=== PATIENT | male | born 1950 | race Caucasian/White ===

== ENCOUNTER 2019-01-14 19:36 | Emergency (ER) | payer MEDICARE, BC ==
--- NOTE | 2019-01-14 20:16 | EDM.PDOC ---
ED HPI GENERAL MEDICAL PROBLEM - General Chief Complaint: Cardiovascular Problem Stated Complaint: irregular heart beat Time Seen by Provider: 01/14/19 19:54 Source of Information: Reports: Patient History Limitations: Reports: No Limitations - History of Present Illness INITIAL COMMENTS - FREE TEXT/NARRATIVE: 68-year-old male with intermittent irregular heartbeat for the past 3 months. He reports that over the past week, however, he has had 3 episodes of irregular heartbeat. He does not feel that his heart is beating fast but just feels that it is beating irregularly. He denies any chest pain. He does have some neck pain chronic and unchanged. He is having no shortness of breath. He has had cold symptoms for the past week and he can Sudafed intermittently for with some relief he monitors his blood pressure daily and he noted from the blood pressure monitor that his heart rate was irregular on Monday of last week, of last week and today. It does seem that this seems to come on after activity. He has no leg swelling. He's had no hemoptysis. He has had a mild cough associated with this cold for the past week. There has been no nausea or vomiting. He has been eating and drinking normally. There are no other associated signs or symptoms. There are no other modifying factors. 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 [Unable to Verify Home Med List] 01/14/19 [History] Past Medical History HEENT History: Reports: Impaired Vision Cardiovascular History: Reports: High Cholesterol, Hypertension Gastrointestinal History: Reports: GERD Musculoskeletal History: Reports: Other (See Below) Other Musculoskeletal History: Collapsed T7 in vertebrae, broken collarbone and 6 ribs Psychiatric History: Reports: ADD, Other (See Below) Other Psychiatric History: Language impairement Endocrine/Metabolic History: Reports: Obesity/BMI 30+ Dermatologic History: Reports: Psoriasis - Past Surgical History HEENT Surgical History: Reports: Tonsillectomy, Other (See Below) Other HEENT Surgeries/Procedures: Torn retina repaired GI Surgical History: Reports: Cholecystectomy, Colonoscopy, Polypectomy Other GI Surgeries/Procedures: Umbilical hernia repair Male Surgical History: Reports: Vasectomy Social & Family History - Tobacco Use Smoking Status *Q: Never Smoker Second Hand Smoke Exposure: Yes - Caffeine Use Caffeine Use: Reports: Coffee, Energy Drinks, Soda - Recreational Drug Use Recreational Drug Use: No - Living Situation & Occupation 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 Denies: Shortness of Breath Cardiovascular: Reports: Palpitations. Denies: Chest Pain Endocrine: Reports: No Symptoms GI/Abdominal: Reports: No Symptoms : Reports: No Symptoms Musculoskeletal: Reports: No Symptoms (No leg swelling L and no body aches) Skin: Reports: No Symptoms Neurological: Reports: No Symptoms Hematologic/Lymphatic: Reports: No Symptoms Immunologic: Reports: No Symptoms ED EXAM, GENERAL - Physical Exam Exam: See Below Exam Limited By: No Limitations General Appearance: Alert, WD/WN, No Apparent Distress Eye Exam: Bilateral Eye: EOMI, Normal Inspection, PERRL Ears: Normal External Exam, Hearing Grossly Normal Ear Exam: Bilateral Ear: Auricle Normal Nose: Nasal Drainage Throat/Mouth: Normal Inspection, Normal Lips, Normal Voice, No Airway Compromise Head: Atraumatic, Normocephalic Neck: Normal Inspection, Supple, Non-Tender, Full Range of Motion Respiratory/Chest: No Respiratory Distress, Lungs Clear, Normal Breath Sounds, No Accessory Muscle Use, Chest Non-Tender Cardiovascular: Normal Peripheral Pulses, No Edema, No Murmur, Irregularly Irregular Peripheral Pulses: 2+: Radial (L), Radial (R) GI/Abdominal: Normal Bowel Sounds, Soft, Non-Tender, No Organomegaly, No Distention, Pelvis Stable Back Exam: Normal Inspection, Full Range of Motion Extremities: Normal Inspection, Normal Range of Motion, Non-Tender, No Pedal Edema, Normal Capillary Refill Neurological: Alert, Oriented, CN II-XII Intact, Normal Cognition, Normal Gait, Normal Reflexes, No Motor/Sensory Deficits Psychiatric: Normal Affect, Normal Mood Skin Exam: Warm, Dry, Intact, Normal Color, No Rash Lymphatic: No Adenopathy EKG INTERPRETATION Rhythm: A-Fib Rate (Beats/Min): 62 Avery: Normal QT: Normal EKG Interpretation Comments: Patient has atrial fibrillation with controlled ventricular response. Course - Vital Signs Last Recorded V/S: Last Vital Signs Temp 36.8 C 01/14/19 20:42 Pulse 71 01/14/19 20:42 Resp 18 01/14/19 20:42 BP 143/79 H 01/14/19 20:42 Pulse Ox 98 01/14/19 20:42 - Orders/Labs/Meds Orders: Active Orders 24 hr Category Date Time Status Cardiac Monitoring [RC] .As Directed Care 01/14/19 20:07 Active EKG Documentation Completion [RC] ASDIRECTED Care 01/14/19 20:09 Active Chest 2V [CR] Stat Exams 01/14/19 20:07 Taken EKG 12 Lead [EK] Routine Ther 01/14/19 20:07 Ordered Labs: Laboratory Tests 01/14/19 01/14/19 01/14/19 Range/Units 20:20 20:20 20:20 WBC 5.4 (4.5-12.0) X10-3/uL RBC 4.76 (4.30-5.75) x10(6)uL Hgb 15.4 (13.5-17.8) g/dL Hct 44.7 (30.0-51.3) % MCV 94.0 (80-96) fL MCH 32.4 (27.7-33.6) pg MCHC 34.5 (32.2-35.4) g/dL RDW 12.7 (11.5-15.5) % Plt Count 206 (125-369) X10(3)uL MPV 8.6 (7.4-10.4) fL Neut % (Auto) 48.2 (46-82) % Lymph % (Auto) 32.3 (13-37) % [place] % (Auto) 10.0 (4-12) % Eos % (Auto) 8 H (1.0-5.0) % Baso % (Auto) 1 (0-2) % Neut # (Auto) 2.6 (1.6-8.3) # Lymph # (Auto) 1.7 (0.6-5.0) # [place] # (Auto) 0.5 (0.0-1.3) # Eos # (Auto) 0.5 (0.0-0.8) # Baso # (Auto) 0.1 (0.0-0.2) # PT 10.4 (8.7-11.1) INR 1.07 (0.89-1.13) APTT 27.6 (24.4-33.2) SECONDS D-Dimer, Quantitative 0.32 (0.0-0.59) mg/LFEU Sodium 139 (135-145) mmol/L Potassium 4.0 (3.5-5.3) mmol/L Chloride 105 (100-110) mmol/L Carbon Dioxide 23 (21-32) mmol/L BUN 28 H (7-18) mg/dL Creatinine 1.7 H (0.70-1.30) mg/dL Est Cr Clr Drug Dosing 42.94 mL/min Estimated GFR (MDRD) 40 L (>60) BUN/Creatinine Ratio 16.5 (9-20) Glucose 122 H (80-116) mg/dL Calcium 8.5 L (8.6-10.2) mg/dL Magnesium 2.1 (1.8-2.5) mg/dL Total Bilirubin 0.4 (0.1-1.3) mg/dL AST 26 H (5-25) IU/L ALT 37 H (12-36) U/L Alkaline Phosphatase 152 H (56-112) IU/L Troponin I (<0.017-0.056) ng/mL Total Protein 7.1 (6.0-8.0) g/dL Albumin 3.5 (3.2-4.6) g/dL Globulin 3.6 g/dL Albumin/Globulin Ratio 1.0 TSH, Ultra Sensitive (0.36-3.74) IU/mL 01/14/19 01/14/19 Range/Units 20:20 20:20 WBC (4.5-12.0) X10-3/uL RBC (4.30-5.75) x10(6)uL Hgb (13.5-17.8) g/dL Hct (30.0-51.3) % MCV (80-96) fL MCH (27.7-33.6) pg MCHC (32.2-35.4) g/dL RDW (11.5-15.5) % Plt Count (125-369) X10(3)uL MPV (7.4-10.4) fL Neut % (Auto) (46-82) % Lymph % (Auto) (13-37) % [place] % (Auto) (4-12) % Eos % (Auto) (1.0-5.0) % Baso % (Auto) (0-2) % Neut # (Auto) (1.6-8.3) # Lymph # (Auto) (0.6-5.0) # [place] # (Auto) (0.0-1.3) # Eos # (Auto) (0.0-0.8) # Baso # (Auto) (0.0-0.2) # PT (8.7-11.1) INR (0.89-1.13) APTT (24.4-33.2) SECONDS D-Dimer, Quantitative (0.0-0.59) mg/LFEU Sodium (135-145) mmol/L Potassium (3.5-5.3) mmol/L Chloride (100-110) mmol/L Carbon Dioxide (21-32) mmol/L BUN (7-18) mg/dL Creatinine (0.70-1.30) mg/dL Est Cr Clr Drug Dosing mL/min Estimated GFR (MDRD) (>60) BUN/Creatinine Ratio (9-20) Glucose (80-116) mg/dL Calcium (8.6-10.2) mg/dL Magnesium (1.8-2.5) mg/dL Total Bilirubin (0.1-1.3) mg/dL AST (5-25) IU/L ALT (12-36) U/L Alkaline Phosphatase (56-112) IU/L Troponin I < 0.017 L (<0.017-0.056) ng/mL Total Protein (6.0-8.0) g/dL Albumin (3.2-4.6) g/dL Globulin g/dL Albumin/Globulin Ratio TSH, Ultra Sensitive 2.62 (0.36-3.74) IU/mL - Re-Assessments/Exams Free Text/Narrative Re-Assessment/Exam: 01/14/19 21:28: Patient remains asymptomatic. His pulse rate is in the 60-70 range. His blood pressures have remained stable. He has atrial fibrillation with controlled rate. He has chronic kidney disease but he has had a history of this. His other blood tests were reassuringly normal. His chest x-ray was normal as well. He will need to follow-up with his primary doctor for recheck and to discuss further treatment and evaluation of his atrial fibrillation on an outpatient basis. He was advised, however, to come back to the emergency department for difficulty breathing, fast heart rate, chest pain or any other concerning sign or symptom. 01/14/19 21:30 Departure - Departure Time of Disposition: 21:30 Disposition: Home, Self-Care 01 Condition: Good Clinical Impression: Atrial fibrillation with controlled ventricular rate Chronic kidney disease Qualifiers: Chronic kidney disease stage: stage 3 (moderate) Qualified Code(s): N18.3 - Chronic kidney disease, stage 3 (moderate) Hypertension Qualifiers: Hypertension type: essential hypertension Qualified Code(s): I10 - Essential ( primary) hypertension Instructions: Atrial Fibrillation, [id number], Hypertension Referrals: Les Jade MD [Primary Care Provider] - Forms: ED Department Discharge Additional Instructions: You have a heart rhythm called atrial fibrillation. Your heart rate, however, is controlled/normal. You do have chronic kidney disease as you knew, but the rest of your blood tests were reassuringly normal. Your chest x-ray showed no acute problem. You should follow-up with your primary doctor this week or next. He should drink plenty of fluids. You should avoid any strenuous activity until cleared to do so by your doctor. Back to the emergency department for breathing , fast heart rate (persistently greater than 120 bpm), chest pain or any other concerning sign or symptom. - My Orders Last 24 Hours: My Active Orders 01/14/19 20:07 Cardiac Monitoring [RC] .As Directed Chest 2V [CR] Stat EKG 12 Lead [EK] Routine 01/14/19 20:09 EKG Documentation Completion [RC] ASDIRECTED - Assessment/Plan Last 24 Hours: My Active Orders 01/14/19 20:07 Cardiac Monitoring [RC] .As Directed Chest 2V [CR] Stat EKG 12 Lead [EK] Routine 01/14/19 20:09 EKG Documentation Completion [RC] ASDIRECTED
--- NOTE | 2019-01-15 11:26 | CR ---
INDICATION: Palpitations. CHEST: PA and lateral views of the chest were obtained 01/14/19 - no comparisons. Somewhat flattened diaphragm leaves, prominent AP diameter, and hyperaeration suggest COPD. The heart appeared normal in size and shape. The aorta is tortuous with minimal calcification in the arch. Bridging hyperostotic changes are noted in the upper middle and middle thoracic spine to a lesser extent. Overlying EKG leads are noted. A definite active infiltrate or effusion was not seen. IMPRESSION: 1. No definite acute process. 2. Probable COPD. 3. ASD aorta. 4. DJD spine. MTDD
== END 2019-01-14 21:42 | disposition home or self-care (01) ==
LOC: FB.ED 19:36
DX: I48.91 Unspecified atrial fibrillation (principal); I12.9 Hypertensive chronic kidney disease with stage 1 through stage 4 chronic kidney disease, or unspecified chronic kidney disease; N18.3 Chronic kidney disease, stage 3 (moderate); E78.00 Pure hypercholesterolemia, unspecified; K21.9 Gastro-esophageal reflux disease without esophagitis; Z77.22 Contact with and (suspected) exposure to environmental tobacco smoke (acute) (chronic)
CPT/HCPCS: 36415; 71046; 80053; 83735; 84443; 84484; 85025; 85379; 85610; 85730; 93005; 99285-25